=== PATIENT | male | born 1945 | race Caucasian/White ===

== ENCOUNTER 2017-11-16 10:01 | Day surgery (SDC) | payer MEDICARE ==
[2017-11-15 10:07] LABS: BASOPHILS # (AUTO) 0.1 X10'3 (0-0.2); BASOPHILS % (AUTO) 0.4 % (0-1); EOSINOPHILS # (AUTO) 1.2 X10'3 (0-0.9); HEMATOCRIT 40.3 % (42.0-52.0); HEMOGLOBIN 13.2 g/dl (14.0-17.9); LYMPHOCYTES # (AUTO) 1.8 X10'3 (1.1-4.8); LYMPHOCYTES % (AUTO) 15.3 % (21-51); MEAN CORPUSCULAR HEMOGLOBIN 28.4 PG (27.0-31.0); MEAN CORPUSCULAR HGB CONC 32.7 % (33.0-36.5); MEAN CORPUSCULAR VOLUME 86.7 FL (78-98); MEAN PLATELET VOLUME 6.8 FL (7.4-10.4); MONOCYTES # (AUTO) 0.6 X10'3 (0-0.9); MONOCYTES % (AUTO) 4.8 % (2-12); NEUTROPHILS # (AUTO) 8.1 X10'3 (1.8-7.7); NEUTROPHILS % (AUTO) 69.5 % (42-75); PLATELET COUNT 500 X10'3 (140-440); RED BLOOD COUNT 4.64 X10'6 (4.70-6.10); RED CELL DISTRIBUTION WIDTH 13.6 % (11.5-14.5); WHITE BLOOD COUNT 11.7 X10'3 (4.5-11.0)
[2017-11-15 10:15] LABS: ALBUMIN 3.3 G/DL (3.4-5.0); ANION GAP 6 (8-16); BLOOD UREA NITROGEN 18 MG/DL (7-18); BUN/CREATININE RATIO 14.4 (5.4-32.0); CALCIUM 9.6 MG/DL (8.5-10.1); CHLORIDE 103 MMOL/L (99-107); CREATININE 1.25 MG/DL (0.60-1.10); GLUCOSE 138 MG/DL (70-104); POTASSIUM 4.2 MMOL/L (3.5-5.1); SODIUM 138 MMOL/L (135-145); TOTAL CARBON DIOXIDE 28.8 MMOL/L (24-32); eGFR 57 ML/MIN
[2017-11-15 10:17] LABS: PARTIAL THROMBOPLASTIN TIME 27 SECONDS (22-32); PROTHROMBIN TIME 10.1 SECONDS (9.0-12.0)
[~2017-11-16] VITALS: Ht 177.8 cm; Wt 80.4 kg
[2017-11-16] VITALS (10 sets, daily range): BP systolic 94–155; BP diastolic 48–84
[~2017-11-16 10:01] MED LIST: ARIP20TA4 PO; ASPI-611 PO; ATOR80TA PO; BUSP15TA12 PO; CLOP75TA15 PO; EZET10TA14 PO; FLUO20CA39 PO; GABA300C PO; METO-539 PO; SILO8CAP PO; TRAZ150T78 PO
[2017-11-16] MEDS ORDERED: LORazepam 0.5 MG tablet PO ONE (11:30)
[2017-11-16] MEDS ORDERED: diphenhydrAMINE 25mg capsule PO ONE (11:30)
[2017-11-16] MEDS ORDERED: normal saline 1000ml 1,000 ML IV SCH (11:30)
[2017-11-16] MEDS ORDERED: iohexol 350MG/ML 100ml bottle IV ONE ×2 (13:32→14:24)
[2017-11-16] MEDS ORDERED: fentaNYL/PF 50MCG/1 ML 2ML syringe ONE (13:32)
[2017-11-16] MEDS ORDERED: LIDOcaine 1% w/EPI 1:100,000 30ml vial (MDV) ONE (13:32)
[2017-11-16] MEDS ORDERED: midazolam 2 mg/2 ml injection ONE (13:32)
[2017-11-16] MEDS ORDERED: ATOR80TA PO (13:39)
[2017-11-16] MEDS ORDERED: LAMO25TA PO ×2 (13:39)
[2017-11-16] MEDS ORDERED: BUSP5TAB3 PO (13:39)
[2017-11-16] MEDS ORDERED: CARV25TA2 PO (13:39)
[2017-11-16] MEDS ORDERED: iohexol 350 MG/ML 50ML vial IV ONE ×3 (14:11→14:22)
[2017-11-16] MEDS ORDERED: heparin 1,000unit/ml 10ml vial 10 ML ONE (14:23)
[2017-11-16] MEDS ORDERED: metoprolol tartrate 1mg/ml inj IV ONE (14:28)
[2017-11-16] MEDS ORDERED: hydrALAZINE 20mg/ml inj. IV ONE (14:31)
[2017-11-16] MEDS ORDERED: clopidogrel 300mg tablet ONE (14:35)
[2017-11-16] MEDS ORDERED: ondansetron/PF 4mg/2ml inj IV PRN (15:40)
[2017-11-16] MEDS ORDERED: proCHLORperazine 10 MG/2 ml inj IV PRN (15:40)
[2017-11-16] MEDS ORDERED: OXAZEpam 15mg capsule PO PRN (15:40)
[2017-11-16] MEDS ORDERED: HYDROcodone/acetaminophen 5mg/325mg tablet PO PRN (15:40)
[2017-11-16] MEDS ORDERED: HYDROcodone/acetaminophen 10/325mg tab PO PRN (15:40)
[2017-11-16] MEDS ORDERED: nitroGLYCERIN 0.4mg SUBLingual tab SL PRN (15:40)
== END 2017-11-16 19:00 | disposition home or self-care (01) ==
LOC: SSTAY O 10:01
PROVIDERS: ATTEND Internal Medicine Interventional Cardiology
DX: I25.708 Atherosclerosis of coronary artery bypass graft(s), unspecified, with other forms of angina pectoris (principal); E78.5 Hyperlipidemia, unspecified; I10 Essential (primary) hypertension; I42.8 Other cardiomyopathies; I25.2 Old myocardial infarction; I65.23 Occlusion and stenosis of bilateral carotid arteries; I44.7 Left bundle-branch block, unspecified; I44.0 Atrioventricular block, first degree; J96.11 Chronic respiratory failure with hypoxia; I49.8 Other specified cardiac arrhythmias; F32.89 Other specified depressive episodes; F41.8 Other specified anxiety disorders; Z87.891 Personal history of nicotine dependence; Z95.1 Presence of aortocoronary bypass graft; Z86.74 Personal history of sudden cardiac arrest; Z79.891 Long term (current) use of opiate analgesic; Z79.82 Long term (current) use of aspirin; Z86.73 Personal history of transient ischemic attack (TIA), and cerebral infarction without residual deficits; Z79.899 Other long term (current) drug therapy; Z98.890 Other specified postprocedural states
CPT/HCPCS: 36415; 80048; 85025; 85610; 85730; 93005; 93459; 93567; 99152; 99153; C1760; C1769; C1874; C9604; J0360; J1644; J2250; J3010; J3490; J7030; Q0163; Q9967; A4620